=== PATIENT | female | born 2000 | race African-American/Black ===

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

== ENCOUNTER 2021-01-10 05:17 | Emergency (ER) | payer MEDICAID ==
[~2021-01-10] VITALS: Ht 154.9 cm; Wt 52.2 kg
[~2021-01-10 05:17] MED LIST changes: +CEPH-570 PO; +DICY10CA37 PO; +OMEP20CA15 PO; -ONDA4TAB5 PO; -PANT40TA2 PO
--- NOTE | 2021-01-10 05:45 | NUR ---
PT BIBS C/O UPPER STOMACH PAIN WELL N/V. PT STATES PAIN IS 10/10. HX OF PANCREATITIS. PT IS A/OX4. ON ROOM AIR SHOWING NO S/S OF RESP DISTRESS/SOB. BREATHING EVEN AND UNLABORED. VSS. WILL CONTINUE TO MONITOR AND ASSESS FOR ANY CHANGES.
[2021-01-10] MEDS ORDERED: MORPHINE SULFATE INJ 2 MG/ML DISP.SYRIN IV ONE (06:00)
[2021-01-10] MEDS ORDERED: IV NS 0.9% 1,000 ML BAG IV ONE (06:00)
[2021-01-10] MEDS ORDERED: ONDANSETRON HCL/PF 4 MG/2 ML VIAL IVP ONE (06:00)
[2021-01-10] MEDS ORDERED: ONDANSETRON HCL/PF 4 MG/2 ML VIAL ONE (06:04)
[2021-01-10] MEDS ORDERED: MORPHINE SULFATE INJ 4 MG/ML DISP.SYRIN ONE (06:05)
[2021-01-10 06:12] LABS: BASOPHILS % (AUTO) 0.3 % (0.0-2.0); EOSINOPHILS % (AUTO) 0.1 % (0.0-6.0); HEMATOCRIT 41 % (33-45); HEMOGLOBIN 13.7 g/dL (11.5-14.8); LYMPHOCYTES # (AUTO) 1.4 K/uL (0.8-4.8); MEAN CORPUSCULAR HGB CONC 33 g/dl (31.0-36.0); MEAN CORPUSCULAR VOLUME 92 fL (82-100); MONOCYTES # (AUTO) 0.3 K/uL (0.1-1.30); MONOCYTES % (AUTO) 2.4 % (2.0-12.0); NEUTROPHILS # (AUTO) 10.7 K/uL (1.8-8.9); NEUTROPHILS % (AUTO) 86.2 % (43.0-81.0); PLATELET COUNT (AUTO) 309 K/uL (150-450); RED BLOOD CELL COUNT(AUTO) 4.51 MIL/uL (4.0-5.2); WHITE BLOOD COUNT (AUTO) 12.4 K/uL (4.3-11.0)
[2021-01-10 06:20] LABS: CALCIUM, SERUM 10.2 mg/dL (8.5-10.1); CREATININE 0.9 mg/dL (0.6-1.3); POTASSIUM 3.7 mmol/L (3.5-5.1)
[2021-01-10 06:26] LABS: ALBUMIN 4.9 g/dL (3.4-5.0); BILIRUBIN,DIRECT 0.1 mg/dL (0.0-0.2); BILIRUBIN,TOTAL 0.6 mg/dL (0.2-1.0); TOTAL PROTEIN, SERUM 9.3 g/dL (6.4-8.2)
[2021-01-10] MEDS ORDERED: METOCLOPRAMIDE HCL 10 MG/2 ML VIAL IV ONE (06:30)
[2021-01-10] MEDS ORDERED: PANTOPRAZOLE 40 MG VIAL IV ONE (06:30)
[2021-01-10] MEDS ORDERED: PANTOPRAZOLE 40 MG VIAL ONE (06:34)
[2021-01-10] MEDS ORDERED: METOCLOPRAMIDE HCL 10 MG/2 ML VIAL ONE (06:35)
--- NOTE | 2021-01-10 07:36 | NUR ---
Patient in bed, asleep respirations even and unlabored. no signs of distress at this time.
[2021-01-10] MEDS ORDERED: PANT40TA2 PO (07:51)
[2021-01-10] MEDS ORDERED: ONDA4TAB5 PO (07:51)
[2021-01-10 08:06] VITALS: BP 118/72
--- NOTE | 2021-01-10 08:06 | NUR ---
Patient discharged to home in stable condition. Written and verbal after care instructions given. Patient verbalizes understanding of instruction.
== END 2021-01-10 08:07 | disposition home or self-care (01) ==
LOC: ER 05:20
DX: R11.10 Vomiting, unspecified (principal); R10.13 Epigastric pain; R10.10 Upper abdominal pain, unspecified; Z79.899 Other long term (current) drug therapy
CPT/HCPCS: 74176; 80048; 80076; 83690; 85025; 96361; 96374; 96375; 99284; C9113; J2270; J2405; J2765

== ENCOUNTER 2021-03-08 10:55 | Emergency (ER) | payer MEDICAID ==
[~2021-03-08] VITALS: Ht 154.9 cm; Wt 49.0 kg
[~2021-03-08 10:55] MED LIST changes: +ONDA4TAB5 PO; +PANT40TA2 PO
--- NOTE | 2021-03-08 11:11 | NUR ---
BIBSELF C/O ABDOMINAL EPIGASTRIC PAIN 02/11, HEADACHE, +NAUSEA, +VOMITING, LAST BOWEL MOVEMENT 1WK AGO, WANT TO GET TESTED FOR COVID, AAOX3, BREATHING EVEN AND NON LABORED. AWAITING MD ALATORRE
--- NOTE | 2021-03-08 11:20 | NUR ---
URINE SENT TO LAB
--- NOTE | 2021-03-08 11:33 | NUR ---
SALINE LOCK ESTABLISHED, BLOOD DRAWN AND SENT TO LAB
--- NOTE | 2021-03-08 11:34 | NUR ---
LAC #20G S/L; PATENT AND INTACT.
[2021-03-08] MEDS ORDERED: ONDANSETRON HCL/PF 4 MG/2 ML VIAL ONE (11:51)
[2021-03-08] MEDS ORDERED: IV NS 0.9% 1,000 ML BAG IV ONE (12:00)
[2021-03-08] MEDS ORDERED: ONDANSETRON HCL/PF 4 MG/2 ML VIAL IVP ONE (12:00)
[2021-03-08 12:17] LABS: BASOPHILS % (AUTO) 0.4 % (0.0-2.0); EOSINOPHILS % (AUTO) 5.5 % (0.0-6.0); HEMATOCRIT 41 % (33-45); LYMPHOCYTES # (AUTO) 1.2 K/uL (0.8-4.8); LYMPHOCYTES % (AUTO) 21.5 % (20.0-44.0); MEAN CORPUSCULAR HGB CONC 34 g/dl (31.0-36.0); MEAN CORPUSCULAR VOLUME 93 fL (82-100); MONOCYTES # (AUTO) 0.5 K/uL (0.1-1.30); MONOCYTES % (AUTO) 9.2 % (2.0-12.0); NEUTROPHILS # (AUTO) 3.7 K/uL (1.8-8.9); NEUTROPHILS % (AUTO) 63.4 % (43.0-81.0); PLATELET COUNT (AUTO) 299 K/uL (150-450); RED BLOOD CELL COUNT(AUTO) 4.43 MIL/uL (4.0-5.2); WHITE BLOOD COUNT (AUTO) 5.8 K/uL (4.3-11.0)
[2021-03-08 12:37] LABS: CALCIUM, SERUM 8.6 mg/dL (8.5-10.1); CREATININE 0.9 mg/dL (0.6-1.3); POTASSIUM 3.6 mmol/L (3.5-5.1)
[2021-03-08 12:43] LABS: BILIRUBIN,DIRECT 0.1 mg/dL (0.0-0.2); BILIRUBIN,TOTAL 0.5 mg/dL (0.2-1.0); TOTAL PROTEIN, SERUM 8.1 g/dL (6.4-8.2)
[2021-03-08] MEDS ORDERED: ONDA4TAB5 PO (13:26)
--- NOTE | 2021-03-08 13:39 | NUR ---
IV removed. Catheter intact and site benign. Pressure and 4x4 applied to site. No bleeding noted.Patient discharged to home in stable condition. Written and verbal after care instructions given. Patient verbalizes understanding of instruction.
[2021-03-08 13:42] VITALS: BP 117/74
== END 2021-03-08 13:44 | disposition home or self-care (01) ==
LOC: ER 11:00
DX: R11.2 Nausea with vomiting, unspecified (principal); R10.13 Epigastric pain; F10.10 Alcohol abuse, uncomplicated; Y90.9 Presence of alcohol in blood, level not specified; Z79.899 Other long term (current) drug therapy
CPT/HCPCS: 36415; 74176; 80048; 80076; 83690; 84703; 85025; 96361; 96374; 99284; J2405; J7030

== ENCOUNTER 2021-04-03 07:18 | Emergency (ER) | payer MEDICAID ==
[~2021-04-03] VITALS: Ht 154.9 cm; Wt 49.0 kg
--- NOTE | 2021-04-03 07:34 | NUR ---
PT CAME TO ER C/O EPIGASTRIC PAIN, NAUSEA, VOMITING X 2 DAYS. PAIN IS BURNIGN SENSATION, RATED 10/10. HX GERD, PANCREATITIS. AAOX4, BREATHING EVEN AND UNLABORED, PULSES 2+ BILATERALLY, SKIN IS WARM AND DRY. ON MONITOR, BLANKET GIVEN.
--- NOTE | 2021-04-03 07:55 | NUR ---
PT IV LINE ESTABLISHED BLOOD DRAWN AND SENT TO LAB.
[2021-04-03] MEDS ORDERED: PROCHLORPERAZINE EDISYLATE 10 MG/2 ML VIAL ONE (07:59)
[2021-04-03] MEDS ORDERED: IV NS 0.9% 1,000 ML BAG IV ONE (08:00)
[2021-04-03] MEDS ORDERED: FAMOTIDINE/PF INJ 20 MG/2 ML VIAL IV ONE ×2 (08:00)
[2021-04-03] MEDS ORDERED: PROCHLORPERAZINE EDISYLATE 10 MG/2 ML VIAL IVP ONE (08:00)
[2021-04-03] MEDS ORDERED: diphenhydrAMINE HCL 50 MG/ML VIAL ONE (08:00)
[2021-04-03] MEDS: diphenhydrAMINE HCL 50 MG/ML VIAL IV ONE (08:10)
[2021-04-03 08:22] LABS: BASOPHILS % (AUTO) 0.3 % (0.0-2.0); EOSINOPHILS % (AUTO) 0.1 % (0.0-6.0); HEMATOCRIT 39 % (33-45); HEMOGLOBIN 13.1 g/dL (11.5-14.8); LYMPHOCYTES # (AUTO) 0.8 K/uL (0.8-4.8); LYMPHOCYTES % (AUTO) 10.4 % (20.0-44.0); MEAN CORPUSCULAR HGB CONC 34 g/dl (31.0-36.0); MEAN CORPUSCULAR VOLUME 93 fL (82-100); MONOCYTES # (AUTO) 0.2 K/uL (0.1-1.30); MONOCYTES % (AUTO) 3.2 % (2.0-12.0); NEUTROPHILS # (AUTO) 6.2 K/uL (1.8-8.9); PLATELET COUNT (AUTO) 345 K/uL (150-450); RED BLOOD CELL COUNT(AUTO) 4.22 MIL/uL (4.0-5.2); WHITE BLOOD COUNT (AUTO) 7.2 K/uL (4.3-11.0)
[2021-04-03 08:46] LABS: ALBUMIN 4.5 g/dL (3.4-5.0); BILIRUBIN,DIRECT 0.1 mg/dL (0.0-0.2); BILIRUBIN,TOTAL 0.5 mg/dL (0.2-1.0); CALCIUM, SERUM 9.4 mg/dL (8.5-10.1); POTASSIUM 3.7 mmol/L (3.5-5.1); TOTAL PROTEIN, SERUM 8.6 g/dL (6.4-8.2)
--- NOTE | 2021-04-03 09:42 | NUR ---
BMP SAMPLE OBTAINED AND SENT TO LAB
[2021-04-03 10:04] LABS: CALCIUM, SERUM 7.9 mg/dL (8.5-10.1); CREATININE 0.8 mg/dL (0.6-1.3); POTASSIUM 3.7 mmol/L (3.5-5.1)
[2021-04-03] MEDS ORDERED: ONDA4TAB5 PO (10:29)
[2021-04-03] MEDS ORDERED: FAMO-131 PO (10:29)
--- NOTE | 2021-04-03 10:37 | NUR ---
IV removed. Catheter intact and site benign. Pressure and 4x4 applied to site. No bleeding noted.
--- NOTE | 2021-04-03 10:37 | NUR ---
Patient discharged to home in stable condition. Written and verbal after care instructions given. Patient verbalizes understanding of instruction.
[2021-04-03 10:38] VITALS: BP 112/61
[2021-04-06] MEDS ORDERED: ZOLP5TAB2 PO (07:45)
[2021-04-06] MEDS ORDERED: HYDR-3972 PO (07:45)
[2021-04-06] MEDS ORDERED: FAMO40TA70 PO (07:45)
[2021-04-06] MEDS ORDERED: ONDA4TAB5 PO (07:45)
== END 2021-04-03 10:39 | disposition home or self-care (01) ==
LOC: ER 07:21
DX: R11.2 Nausea with vomiting, unspecified (principal); R10.13 Epigastric pain; F12.10 Cannabis abuse, uncomplicated; Z79.899 Other long term (current) drug therapy
CPT/HCPCS: 36415; 80048 ×2; 80076; 83690; 84702; 85025; 96361; 96374; 96375; 99284; J0780; J1200; J3490; J7030

== ENCOUNTER 2021-04-04 13:56 | Inpatient (IN) | payer MEDICAID ==
[~2021-04-04] VITALS: Ht 154.9 cm; Wt 49.9 kg
[~2021-04-04 13:56] MED LIST changes: +FAMO-131 PO
--- NOTE | 2021-04-04 14:03 | NUR ---
TO ER BED 9, BIBRA 102 FROM HOME C/O ABDOMINAL PAIN, NAUSEA AND VOMITING, AAOX3, BREATHING EVEN AND NON LABORED, CONNECTED TO MONITOR
--- NOTE | 2021-04-04 14:12 | NUR ---
LAW [place] AT [facility]
--- NOTE | 2021-04-04 14:15 | NUR ---
WOOD HEEL FITTER MACHINE AT PT'S BEDSIDE
[2021-04-04 14:20] LABS: BASOPHILS # (AUTO) 0.1 K/uL (0.0-0.2); EOSINOPHILS % (AUTO) 1.3 % (0.0-6.0); HEMATOCRIT 36 % (33-45); HEMOGLOBIN 12.5 g/dL (11.5-14.8); LYMPHOCYTES % (AUTO) 53.1 % (20.0-44.0); MEAN CORPUSCULAR HGB CONC 34 g/dl (31.0-36.0); MEAN CORPUSCULAR VOLUME 91 fL (82-100); MONOCYTES # (AUTO) 0.3 K/uL (0.1-1.30); MONOCYTES % (AUTO) 5.2 % (2.0-12.0); NEUTROPHILS # (AUTO) 2.2 K/uL (1.8-8.9); NEUTROPHILS % (AUTO) 39.4 % (43.0-81.0); PLATELET COUNT (AUTO) 311 K/uL (150-450); RED BLOOD CELL COUNT(AUTO) 4.03 MIL/uL (4.0-5.2); WHITE BLOOD COUNT (AUTO) 5.6 K/uL (4.3-11.0)
--- NOTE | 2021-04-04 14:24 | NUR ---
US TECH AT PT'S BEDSIDE
[2021-04-04 14:30] LABS: CALCIUM, SERUM 8.9 mg/dL (8.5-10.1)
[2021-04-04] MEDS ORDERED: ONDANSETRON HCL/PF 4 MG/2 ML VIAL IVP ONE (14:30)
[2021-04-04] MEDS ORDERED: ONDANSETRON HCL/PF 4 MG/2 ML VIAL ONE ×2 (14:34→17:07)
[2021-04-04] MEDS ORDERED: MORPHINE SULFATE INJ 4 MG/ML DISP.SYRIN ONE (14:34)
[2021-04-04 14:41] LABS: ALBUMIN 4.1 g/dL (3.4-5.0); BILIRUBIN,DIRECT 0.2 mg/dL (0.0-0.2); BILIRUBIN,TOTAL 0.6 mg/dL (0.2-1.0); POTASSIUM 2.8 mmol/L (3.5-5.1); TOTAL PROTEIN, SERUM 7.7 g/dL (6.4-8.2)
[2021-04-04] MEDS ORDERED: POTASSIUM CHLORIDE 20 MEQ TAB.PRT.SR PO ONE ×2 (14:53→15:00)
[2021-04-04] MEDS ORDERED: HALOPERIDOL LACTATE INJ 5 MG/ML VIAL ONE (14:53)
[2021-04-04] MEDS ORDERED: Magnesium 1GM/D5W 100ML PREMIX 100 ML IV ONE (14:54)
[2021-04-04] MEDS ORDERED: POTASSIUM CL. PREMIX PERIPHER. 50 ML ONE ×3 (14:54→17:47)
[2021-04-04] MEDS: POTASSIUM CL. PREMIX PERIPHER. 50 ML IV SCH ×4 (14:56→18:00)
[2021-04-04] MEDS ORDERED: IV NS 0.9% 1,000 ML IV ONE (15:00)
[2021-04-04] MEDS ORDERED: Magnesium 1GM/D5W 100ML PREMIX 100 ML IV SCH (15:00)
[2021-04-04] MEDS ORDERED: HALOPERIDOL LACTATE INJ 5 MG/ML VIAL IM ONE (15:00)
[2021-04-04] MEDS ORDERED: MORPHINE SULFATE INJ 2 MG/ML DISP.SYRIN IV ONE (15:00)
--- NOTE | 2021-04-04 15:10 | NUR ---
COVID ANTIGEN COLLECTED AND SENT TO LAB
--- NOTE | 2021-04-04 15:30 | NUR ---
THE PATIENT REFUSED KDUR. DR HUBBARD MADE AWARE WITH NO NEW ORDERS.
--- NOTE | 2021-04-04 15:51 | NUR ---
Livia parikh in [facility] - 04/04/21 at [address] MADERA AT THE BEDSIDE
--- NOTE | 2021-04-04 16:00 | NUR ---
URINE COLLECTED AND SENT TO THE LAB
[2021-04-04 16:23] LABS: BILIRUBIN,URINE NEGATIVE (NEGATIVE); COLOR,URINE YELLOW (YELLOW); LEUKOCYTE ESTERASE ,URINE NEGATIVE (NEGATIVE); NITRITE, URINE NEGATIVE (NEGATIVE); PROTEIN,URINE NEGATIVE (NEGATIVE); UGLUCOSE NEGATIVE (NEGATIVE); UROBILINOGEN,URINE 0.2 EU/dL (0.2)
--- NOTE | 2021-04-04 16:24 | NUR ---
MOVE SHEET SUBMITTED.
--- NOTE | 2021-04-04 16:36 | NUR ---
PATIENT REFUSED ORDERED HALDOL. DR HUBBARD MADE AWARE.
[2021-04-04 17:00] LABS: BACTERIA,URINE RARE /HPF (None Seen)
[2021-04-04] MEDS ORDERED: Z GUARD REMEDY 2 OZ OINT TP PRN (17:00)
[2021-04-04] MEDS ORDERED: ONDANSETRON HCL/PF 4 MG/2 ML VIAL IVP PRN (17:00)
[2021-04-04] MEDS ORDERED: MAG HYDROX/AL HYDROX/SIMETH 30 ML UDC PO PRN (17:00)
[2021-04-04] MEDS ORDERED: MORPHINE SULFATE INJ 2 MG/ML DISP.SYRIN IV PRN (17:00)
[2021-04-04] MEDS ORDERED: POTASSIUM CL. PREMIX PERIPHER. 100 ML ONE (19:35)
--- NOTE | 2021-04-04 20:07 | NUR ---
TO BED 110-T
--- NOTE | 2021-04-04 20:20 | NUR ---
REPORT GIVEN TO SERGIO MARKHAM RN FOR TREVOR
--- NOTE | 2021-04-04 20:56 | NUR ---
PT TRANSFERRED TO [facility] 110-T VIA ACLS PROTOCOL. ALL BELONGINGS WITH PT. VSS
[2021-04-04 21:00] VITALS: BP 112/72
[2021-04-04] MEDS: IV D5/0.45 NACL 1,000 ML IV PRN (21:22)
[2021-04-04] MEDS: PANTOPRAZOLE 40 MG VIAL IV SCH (21:24)
[2021-04-04] MEDS: ENOXAPARIN SODIUM 40 MG/0.4 ML DISP.SYRIN SQ SCH (21:25)
--- NOTE | 2021-04-04 21:30 | NUR ---
RN NOTES: PATIENT ADMITTED FROM ER WITH DX OF INTRACTABLE NAUSEA/VOMITING, HYPOKALEMIA, COVID 19. ALERT, ORIENTED X 4, VERBALLY RESPONSIVE. O2 SAT 100% AT ROOM AIR. NO SOB, NO CHEST CONGESTION, BREATHING EVEN AND UNLABORED. PATIENT C/O SEVERE ABDOMINAL PAIN, MORPHINE IV PUSH GIVEN PRN ORDER. TOLERATED WELL. IV ACCESS ON RAC #20 G AND LAC #18 G. POTASSIUM IV RUNNING. D5 1/2 NS STARTED ORDER 100 ML/HR. PATIENT REMAIN NPO. EDUCATED REGARDING DIET, ROOM ORIENTATION DONE. ISOLATION PRECAUTION OBSERVED. PATIENT CONTINENT ON BOWEL AND BLADDER. AMBULATORY. ABLE TO GO TO RESTROOM BY HERSELF. ALL SAFETY MEASURE PROVIDED. BOTH BED RAILS UP. BED IN LOW POSITION AND LOCKED. PLACE CALL LIGHT WITH IN REACH. WILL CONTINUE TO MONITOR
[2021-04-05 04:00] VITALS: BP 100/78
--- NOTE | 2021-04-05 06:37 | NUR ---
RN NOTE PT SLEEPING AROUSES EASILY. TOLERATING ROOM AIR, SATING 100%. NOT IN ANY DISTRESS. PATIENT DENIES ANY PAIN OR NAUSEA AT THIS TIME. NO VOMITING WERE NOTED ALL THROUGHOUT SHIFT. REMAIN NPO. CONTINUE ON IVFLUIDS OF D51/2 NS AT 100ML/HR, INFUSING WELL. ALL SAFETY MEASURES MAINTAINED. OBSERVED ISOLATION PRECAUTIONS.
[2021-04-05 06:45] LABS: BASOPHILS % (AUTO) 0.5 % (0.0-2.0); EOSINOPHILS % (AUTO) 2.1 % (0.0-6.0); HEMATOCRIT 32 % (33-45); HEMOGLOBIN 11.1 g/dL (11.5-14.8); LYMPHOCYTES # (AUTO) 3.9 K/uL (0.8-4.8); LYMPHOCYTES % (AUTO) 45.1 % (20.0-44.0); MEAN CORPUSCULAR HGB CONC 35 g/dl (31.0-36.0); MEAN CORPUSCULAR VOLUME 91 fL (82-100); MONOCYTES # (AUTO) 0.7 K/uL (0.1-1.30); MONOCYTES % (AUTO) 7.6 % (2.0-12.0); NEUTROPHILS # (AUTO) 3.9 K/uL (1.8-8.9); NEUTROPHILS % (AUTO) 44.7 % (43.0-81.0); PLATELET COUNT (AUTO) 253 K/uL (150-450); RED BLOOD CELL COUNT(AUTO) 3.46 MIL/uL (4.0-5.2); WHITE BLOOD COUNT (AUTO) 8.7 K/uL (4.3-11.0)
[2021-04-05 07:21] LABS: CALCIUM, SERUM 7.5 mg/dL (8.5-10.1); CREATININE 0.8 mg/dL (0.6-1.3); PHOSPHORUS 3.2 mg/dL (2.5-4.9); POTASSIUM 3.5 mmol/L (3.5-5.1)
--- NOTE | 2021-04-05 07:35 | NUR ---
RN OPENING NOTE RECEIVED PATIENT ASLEEP IN BED, EASY TO AROUSE. PATIENT IS ALERT AND ORIENTED X4. NO SOB. NO C/O PAIN AT THIS TIME. BREATHING IS EVEN AND UNLABORED. IV ACCESS LAC#20 PATENT AND INTACT. PT HAS BEEN NPO SINCE LAST NIGHT, WILL START CLEAR LIQUIDS TODAY PER DR. GENO ELLIS. SAFETY MEASURES IN PLACE WITH BED LOCKED AT LOWEST POSITION AND SIDE RAILS UP X2. WILL CONTINUE TO MONITOR PATIENT FOR INCREASED PAIN.
[2021-04-05] MEDS: PANTOPRAZOLE 40 MG VIAL IV SCH (08:27)
[2021-04-05] MEDS: IV D5/0.45 NACL 1,000 ML IV PRN ×2 (09:20→20:09)
[2021-04-05 12:00] VITALS: BP 100/78
[2021-04-05 12:19] VITALS: BP 100/78
[2021-04-05] MEDS: ENOXAPARIN SODIUM 40 MG/0.4 ML DISP.SYRIN SQ SCH (16:41)
--- NOTE | 2021-04-05 18:54 | NUR ---
RN CLOSING NOTE PT IN BED, RESTING COMFORTABLY. NO S/SX OF DISTRESS NOTED. NO SOB. BREATHING IS EVEN AND UNLABORED . PT ON ROOM AIR, TOLERATING WELL NO SIGNIFICANT CHANGE THROUGHOUT SHIFT. SAFETY MEASURES MAINTAINED. WILL ENDORSE CONTINUITY OF CARE TO ONCOMING SHIFT.
--- NOTE | 2021-04-05 19:40 | NUR ---
CONTINUITY OF CARE Patient in bed, A/O x4. Independent, ambulatory. Patient voicing to gp home tomorrow, feeling better. No c/o pain, no sob. Tolerating room air, no cough. Contact, droplet precaution maintained.
[2021-04-05 21:42] VITALS: BP 100/61
[2021-04-06 05:22] VITALS: BP 116/73
--- NOTE | 2021-04-06 06:13 | NUR ---
END OF SHIFT REPORT Patient is A/O x4. IVF infusing, on Full liquids diet tolerating well, no c/o N/V. Mild acid reflux discomfort but denies abdominal pain. Ambulatory, independent. No cough, stable on RA, afebrile. Feel better and wants to go home today. Will endorse to oncoming RN.
[2021-04-06] MEDS: IV D5/0.45 NACL 1,000 ML IV PRN (06:17)
[2021-04-06] MEDS ORDERED: FAMO40TA70 PO (07:45)
[2021-04-06] MEDS ORDERED: HYDR-3972 PO (07:45)
[2021-04-06] MEDS ORDERED: ZOLP5TAB2 PO (07:45)
[2021-04-06] MEDS ORDERED: ONDA4TAB5 PO (07:45)
[2021-04-06] MEDS: PANTOPRAZOLE 40 MG VIAL IV SCH (08:58)
--- NOTE | 2021-04-06 08:59 | NUR ---
RN NOTE PT D/C AROUND 8:55AM, IN STABLE CONDITION, V/S STABLE. WAS PICKED UP BY FAMILY MEMBER. IV LINES REMOVED ON RAC AND LAC. BELONGINGS CHECK LIST SIGNED. D/C INSTRUCTIONS AND PAPERS GIVEN AND VERBALIZED UNDERSTANDING.
== END 2021-04-06 08:54 | disposition home or self-care (01) | DRG 425 ==
LOC: ER 14:25 → TELE1 20:09 → MEDSG1 23:56
PROVIDERS: ADMIT Nurse Practitioner Acute Care; ATTEND Nurse Practitioner Acute Care
DX: E87.6 Hypokalemia (principal); U07.1 COVID-19; R11.2 Nausea with vomiting, unspecified; F12.188 Cannabis abuse with other cannabis-induced disorder; K21.9 Gastro-esophageal reflux disease without esophagitis; D64.9 Anemia, unspecified
CPT/HCPCS: 36415; 71045-TC; 76705-TC; 80048-TC; 80076-TC; 81001; 83690-TC; 83735-TC; 84100-TC; 84703-TC; 85025-TC; 85378-TC; 86140-TC; 87081-TC; A6253; C9113; C9803; G0378; J1630; J1650; J2270; J2405; J3475; J3480; J3490; J7030; J7040

== ENCOUNTER 2023-07-12 15:04 | Emergency (ER) | payer MEDICAID ==
[~2023-07-12] VITALS: Ht 157.5 cm; Wt 63.0 kg
[~2023-07-12 15:04] MED LIST changes: -CEPH-570 PO; -DICY10CA37 PO; +FAMO40TA70 PO; +HYDR-3972 PO; -OMEP20CA15 PO; -PANT40TA2 PO; +ZOLP5TAB2 PO
[2023-07-12] MEDS ORDERED: AMOX-430 PO (15:25)
[2023-07-12] MEDS ORDERED: dexAMETHasone 1 MG/ML UDC ONE (15:36)
[2023-07-12] MEDS ORDERED: dexaMETHasone SOD PHOSPHATE 0 ML ONE (15:37)
[2023-07-12] MEDS: dexaMETHasone SOD PHOSPHATE 10 MG/ML VIAL MC ONE (15:38)
[2023-07-12 15:42] VITALS: BP 124/68; TEMP 209.3; O2SAT 99
== END 2023-07-12 15:43 | disposition home or self-care (01) ==
LOC: ER 15:04
DX: J02.0 Streptococcal pharyngitis (principal)
CPT/HCPCS: 99283; J8540; J1100

== ENCOUNTER 2023-11-01 17:03 | Emergency (ER) | payer MEDICAID ==
[~2023-11-01] VITALS: Ht 154.9 cm; Wt 54.4 kg
[~2023-11-01 17:03] MED LIST changes: +AMOX-430 PO
[2023-11-01 17:09] VITALS: TEMP 98
[2023-11-01] MEDS ORDERED: CEFTRIAXONE 500 MG VIAL ONE (20:10)
[2023-11-01] MEDS ORDERED: LIDOCAINE /MPF 1% VIAL 5 ML VIAL ONE (20:13)
[2023-11-01] MEDS: CEFTRIAXONE 500 MG VIAL IM ONE (20:19)
[2023-11-01 20:32] LABS: APPEARANCE,URINE CLOUDY (CLEAR); BILIRUBIN,URINE NEGATIVE (NEGATIVE); BLOOD, URINE NEGATIVE Ery/uL (NEGATIVE); COLOR,URINE YELLOW (YELLOW); KETONES,URINE NEGATIVE (NEGATIVE); LEUKOCYTE ESTERASE ,URINE TRACE (NEGATIVE); NITRITE, URINE NEGATIVE (NEGATIVE); PROTEIN,URINE TRACE mg/dl (NEGATIVE); UGLUCOSE NEGATIVE (NEGATIVE); UROBILINOGEN,URINE 0.2 EU/dL (0.2)
[2023-11-01 20:35] LABS: PREGNANCY TEST URINE QUAL NEGATIVE (NEGATIVE)
[2023-11-01] MEDS ORDERED: DOXY100C2 PO (20:41)
[2023-11-01] MEDS ORDERED: METR-147 PO (20:41)
[2023-11-01 20:43] LABS: RBC,URINE 0-2 /HPF (0-2)
[2023-11-01 20:44] LABS: ADD URINE CULTURE NO; BACTERIA,URINE Few /HPF (None Seen); SQUAMOUS EPITHELIAL CELL,UR Many /HPF (None Seen); YEAST,URINE None Seen /HPF (None Seen)
[2023-11-01 20:46] LABS: TRICHOMONAS,URINE None Seen /HPF (None Seen)
[2023-11-01 20:47] LABS: FINE GRANULAR CASTS,URINE Few /LPF (None Seen); MUCUS,URINE Many /LPF (None Seen)
[2023-11-01 20:48] VITALS: BP 102/72; O2SAT 97
[2023-11-03 21:06] LABS: CHLAMYDIA TRACHOMATIS NAA Negative (Negative); NEISSERIA GONORRHOEAE NAA Negative (Negative)
== END 2023-11-01 20:49 | disposition home or self-care (01) ==
LOC: ER 17:11
DX: N76.0 Acute vaginitis (principal); B96.89 Other specified bacterial agents as the cause of diseases classified elsewhere; F12.10 Cannabis abuse, uncomplicated
CPT/HCPCS: 99284; 96372; 84703; 81001; 87210; 87491; 87591; J0696; J3490

== ENCOUNTER 2024-05-12 20:27 | Emergency (ER) | payer MEDICAID ==
[~2024-05-12] VITALS: Ht 154.9 cm; Wt 54.4 kg
[~2024-05-12 20:27] MED LIST changes: +DOXY100C2 PO; +METR-147 PO
[2024-05-12 23:00] VITALS: TEMP 98.6
[2024-05-12] MEDS ORDERED: KETOROLAC TROMETHAMINE 15 MG/ML VIAL IV ONE (23:30)
[2024-05-12 23:38] LABS: APPEARANCE,URINE CLEAR (CLEAR); COLOR,URINE YELLOW (YELLOW)
[2024-05-12 23:39] LABS: BILIRUBIN,URINE NEGATIVE (NEGATIVE); BLOOD, URINE NEGATIVE Ery/uL (NEGATIVE); KETONES,URINE NEGATIVE (NEGATIVE); LEUKOCYTE ESTERASE ,URINE NEGATIVE (NEGATIVE); NITRITE, URINE NEGATIVE (NEGATIVE); PROTEIN,URINE NEGATIVE (NEGATIVE); UGLUCOSE NEGATIVE (NEGATIVE); UROBILINOGEN,URINE 0.2 EU/dL (0.2)
[2024-05-12 23:42] LABS: BASOPHILS # (AUTO) 0.1 K/uL (0.0-0.2); BASOPHILS % (AUTO) 0.8 % (0.0-2.0); EOSINOPHILS # (AUTO) 0.2 K/uL (0.0-0.7); EOSINOPHILS % (AUTO) 2.7 % (0.0-6.0); HEMATOCRIT 37 % (33-45); HEMOGLOBIN 12.9 g/dL (11.5-14.8); LYMPHOCYTES # (AUTO) 2.7 K/uL (0.8-4.8); LYMPHOCYTES % (AUTO) 37.9 % (20.0-44.0); MEAN CORPUSCULAR HEMOGLOBIN 32 PG (26.0-33.0); MEAN CORPUSCULAR HGB CONC 35 g/dl (31.0-36.0); MEAN CORPUSCULAR VOLUME 92 fL (82-100); MONOCYTES # (AUTO) 0.5 K/uL (0.1-1.30); MONOCYTES % (AUTO) 7.6 % (2.0-12.0); NEUTROPHILS # (AUTO) 3.7 K/uL (1.8-8.9); PLATELET COUNT (AUTO) 316 K/uL (150-450); RED BLOOD CELL COUNT(AUTO) 4.05 MIL/uL (4.0-5.2); WHITE BLOOD COUNT (AUTO) 7.2 K/uL (4.3-11.0)
[2024-05-12 23:50] LABS: CALCIUM, SERUM 8.9 mg/dL (8.5-10.1); CREATININE 0.7 mg/dL (0.6-1.3); POTASSIUM 3.7 mmol/L (3.5-5.1)
[2024-05-13 00:16] LABS: ALBUMIN 3.2 g/dL (3.4-5.0); BILIRUBIN,DIRECT 0.1 mg/dL (0.0-0.2); BILIRUBIN,TOTAL 0.2 mg/dL (0.2-1.0); TOTAL PROTEIN, SERUM 7.3 g/dL (6.4-8.2)
[2024-05-13 03:36] VITALS: BP 111/73; O2SAT 98
== END 2024-05-13 01:36 | disposition home or self-care (01) ==
LOC: ER 20:33
DX: O26.891 Other specified pregnancy related conditions, first trimester (principal); O99.321 Drug use complicating pregnancy, first trimester; K59.00 Constipation, unspecified; F12.90 Cannabis use, unspecified, uncomplicated; Z3A.01 Less than 8 weeks gestation of pregnancy
CPT/HCPCS: 36415; 76856-TC; 80048-TC; 80076-TC; 84702-TC; 85025-TC; 87110-TC; 87210-TC